=== PATIENT | male | born 1970 | race Caucasian/White ===

== ENCOUNTER 2017-12-29 23:04 | Emergency (ER) | payer OTHER ==
--- NOTE | 2017-12-30 00:17 | EDM.PDOC ---
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 no other injuries. [place] is up to date. Onset: Sudden Duration: Hour(s): Location: Reports: Lower Extremity, Right Quality: Reports: Burning Severity: Moderate Improves with: Reports: Immobilization Worsens with: Reports: Movement Context: Reports: Other (cut with electric filet knife.) Treatments MANAGER PERIOPERATIVE: Reports: Home Treatments (bandage applied to wound) - Related Data Allergies Allergy/AdvReac Type Severity Reaction Status Date / Time vancomycin Allergy Rash Verified 12/29/17 23:22 Home Meds: Home Meds NK [No Known Home Meds] 12/29/17 [History] Past Medical History - Past Health History Medical/Surgical History: Denies Medical/Surgical History Social & Family History - Tobacco Use Smoking Status *Q: Former Smoker Used Tobacco, but Quit: Yes Month/Year Tobacco Last Used: 2011 - Caffeine Use Caffeine Use: Reports: Coffee - Alcohol Use Days Per Week of Alcohol Use: 2 Number of Drinks Per Day: 2 Total Drinks Per Week: 4 - Recreational Drug Use Recreational Drug Use: No ED ROS GENERAL - Review of Systems Review Of Systems: See Below Constitutional: Reports: No Symptoms Skin: Reports: Other (laceration to right lower leg) Neurological: Reports: No Symptoms Psychiatric: Reports: No Symptoms Hematologic/Lymphatic: Reports: No Symptoms Immunologic: Reports: No Symptoms ED EXAM, SKIN/RASH Exam: See Below Exam Limited By: No Limitations General Appearance: Alert, WD/WN, No Apparent Distress Ears: Normal External Exam, Normal Canal, Hearing Grossly Normal, Normal TMs Nose: Normal Inspection, Normal Mucosa, No Blood Throat/Mouth: Normal Inspection, Normal Lips, Normal Teeth, Normal Gums, Normal Oropharynx, Normal Voice, No Airway Compromise Head: Atraumatic, Normocephalic Neck: Normal Inspection, Supple, Non-Tender, Full Range of Motion Respiratory/Chest: No Respiratory Distress, Lungs Clear, Normal Breath Sounds, No Accessory Muscle Use, Chest Non-Tender Cardiovascular: Normal Peripheral Pulses, Regular Rate, Rhythm, No Edema, No Gallop, No JVD, No Murmur, No Rub GI/Abdominal: Normal Bowel Sounds, Soft, Non-Tender, No Organomegaly, No Distention, No Abnormal Bruit, No Mass (Male) Exam: No Hernia, Normal Inspection, Normal Prostate, Circumcised Rectal (Males) Exam: Normal Exam, Normal Rectal Tone, Prostate Normal Back Exam: Normal Inspection, Full Range of Motion, NT Extremities: Normal Inspection, Normal Range of Motion, Non-Tender, No Pedal Edema, Normal Capillary Refill Neurological: Alert, Oriented, CN II-XII Intact, Normal Cognition, Normal Gait, Normal Reflexes, No Motor/Sensory Deficits Psychiatric: Normal Affect, Normal Mood Skin: Warm, Other (laceration to right lower leg, anterior ) Location, Skin: Lower Extremity, Right Characteristics: Linear Associated features: Tenderness Lymphatic: No Adenopathy ED SKIN PROCEDURES - Laceration/Wound Repair Right Lower Lateral Distal Leg Lac/Wound length In cm: 5 Appearance: Subcutaneous, Linear, Clean Distal NVT: Neuro & Vascular Intact, No Tendon Injury Anesthetic Type: Local Local Anesthesia - Lidocaine (Xylocaine): 1% with EPI Local Anesthetic Volume: 2cc Skin Prep: Chlorhexidine (Hibiciens), Saline Saline Irrigation (cc's): 40 Exploration/Debridement/Repair: Wound Explored, Explored to Base Closed with: Sutures Suture Size: 3-0 # of Sutures: 14 Suture Type: Prolene Sterile Dressing Applied: Nurse Tetanus Status Addressed: Other (2012) Complications: No Course - Vital Signs Last Recorded V/S: Last Vital Signs Temp 35.7 C 12/29/17 23:24 Pulse 64 12/29/17 23:24 Resp 16 12/29/17 23:24 BP 144/78 H 12/29/17 23:24 Pulse Ox 97 12/29/17 23:24 Departure - Departure Time of Disposition: 00:26 Disposition: Home, Self-Care 01 Condition: Good Clinical Impression: Laceration of leg Qualifiers: Encounter type: initial encounter Laterality: right Qualified Code(s): S81.811A - Laceration without foreign body, right lower leg, initial encounter - Discharge Information Instructions: Laceration Care, Adult, [id number] Referrals: PCP,None [Primary Care Provider] - Forms: ED Department Discharge Care Plan Goals: laceration of leg -suture; apply bacitracin ointment to wound two times a day for 3 days, then keep clean and dry -Sutures out in 10 days -Keflex 500mg one tablet in morning and night til gone -hydrocodone 5-325mg one every 4 to 6 hours as needed for pain -may take Motrin or Tylenol for less severe pain Return to ER for any increased pain, fever,chills, nausea,vomiting, diarrhea, rash or any signs of infection. - Problem List & Annotations (1) Laceration of leg SNOMED Code(s): 210387583 Code(s): S81.819A - LACERATION WITHOUT FOREIGN BODY, UNSP LOWER LEG, INIT ENCNTR Status: Acute Priority: High Qualifiers: Encounter type: initial encounter Laterality: right Qualified Code(s): S81.811A - Laceration without foreign body, right lower leg, initial encounter - Problem List Review Problem List Initiated/Reviewed/Updated: Yes - Assessment/Plan Plan: laceration of leg -suture; apply bacitracin ointment to wound two times a day for 3 days, then keep clean and dry -Sutures out in 10 days -Keflex 500mg one tablet in morning and night til gone -hydrocodone 5-325mg one every 4 to 6 hours as needed for pain -may take Motrin or Tylenol for less severe pain Return to ER for any increased pain, fever,chills, nausea,vomiting, diarrhea, rash or any signs of infection.
== END 2017-12-30 00:26 | disposition home or self-care (01) ==
LOC: JP.ED 23:04
DX: S81.811A Laceration without foreign body, right lower leg, initial encounter (principal); W29.1XXA Contact with electric knife, initial encounter; Y93.89 Activity, other specified; Y92.838 Other recreation area as the place of occurrence of the external cause; Z87.891 Personal history of nicotine dependence; Z88.1 Allergy status to other antibiotic agents
CPT/HCPCS: 12002; 99283-25